=== PATIENT | female | born 1955 | race Caucasian/White ===

== ENCOUNTER → 2017-02-02 | Outpatient (CLI) | payer MEDICARE, MEDICAID ==
[~2017-02-02] MED LIST: ACHD5005 PO; ACYC30OI TOP; ASP325T PO; ASPI-241 PO; ATOR40TA70 PO; CANA300T PO; CIPR-17 PO; CLOP75TA28 PO; CYCL10TA9 PO; HYDR-34 PO; HYDR-3583 PO; IBUP-15 PO; INSASP10V SC; INSU100C4 SQ; LIRA0.6P SQ; LISI1TAB PO; METF-472 PO; MPR22TI TP; MTF500T PO; NAPR-243 PO; NAPR500T3 PO; NF-ESOM40C PO; NITR4.1S2 TL; POLY17PO23 PO
== END ==
LOC: RAD 09:20
PROVIDERS: ATTEND Physician Assistant Medical
DX: Z12.31 Encounter for screening mammogram for malignant neoplasm of breast (principal)
CPT/HCPCS: 77067

== ENCOUNTER → 2017-04-14 | Outpatient (CLI) | payer MEDICARE, MEDICAID ==
[~2017-04-14] MED LIST changes: -NAPR500T3 PO; +NAPR500T4 PO
[2017-04-14 08:57] LABS: ANION GAP 10 MMOL/L (5-14); BLOOD UREA NITROGEN 15 MG/DL (7-18); BUN/CREATININE RATIO 20; CALCIUM 9.6 MG/DL (8.5-10.1); CARBON DIOXIDE 21 MMOL/L (21-32); CHLORIDE 108 MMOL/L (98-107); CREATININE SERUM 0.75 MG/DL (0.60-1.30); GFR ESTIMATED > 60; GLUCOSE 145 MG/DL (70-105); POTASSIUM 4.6 MMOL/L (3.6-5.0); SODIUM 139 MMOL/L (135-145)
== END ==
LOC: LAB 08:08
PROVIDERS: ATTEND Physician Assistant Medical
DX: I11.0 Hypertensive heart disease with heart failure (principal); I50.42 Chronic combined systolic (congestive) and diastolic (congestive) heart failure; I25.10 Atherosclerotic heart disease of native coronary artery without angina pectoris; G44.89 Other headache syndrome; Z85.038 Personal history of other malignant neoplasm of large intestine
CPT/HCPCS: 36415; 80048

== ENCOUNTER → 2017-04-16 | Outpatient (CLI) | payer MEDICARE, MEDICAID ==
[~2017-04-16] MED LIST changes: +CATHETER FLUSH 10 ML SYR IV PRN; +IOHEXOL 350 MG/ML 100 ML (OMNIPAQUE 350) VIAL IV ONE; +NS 100 ML (IVPB) BAG IV ONE
--- NOTE | 2017-04-16 13:01 | Diagnostic Imaging Report ---
PROCEDURE: CT angiography of the head with and without contrast. TECHNIQUE: A noncontrast CT of the head was obtained. Subsequently, after intravenous administration of contrast, thin section axial CT angiography of the head was performed. Source data was reformatted into multiple MIP reformats. Delayed postcontrast acquisition of the head was also acquired. INDICATION: Headache. History of colon cancer. CONTRAST: 80 mL of Omnipaque 350 was administered intravenously. FINDINGS: There is a metallic foreign body along the right temporal region with leads seen in the mastoid air cells. This could be related to a cochlear implant. Correlate with surgical history. There is no intracranial hemorrhage, edema, or mass effect. There is no hydrocephalus. No extra-axial fluid collection is seen. The parenchymal postcontrast phase demonstrates no enhancing mass in the brain. CTA evaluation demonstrates an azygos single-vessel ELDA A2 segment seen that branches into two branches at the A3 level. There is a hypoplastic A1 segment on the right side and a prominent A1 segment on the left. The MCA arteries are patent bilaterally. The internal carotid artery intracranial segments demonstrate atherosclerotic plaque in the cavernous segments with no significant stenosis. The vertebral arteries demonstrate dominance on the left side but both are patent. The basilar artery is patent. The COUNTER CASER is patent bilaterally. IMPRESSION: Postsurgical changes with artifacts related to metallic implant along the right temporal region. No evidence of metastatic disease and no evidence of high-grade stenosis, occlusion, or aneurysm in the major intracranial arteries. Normal variation hypoplastic of the A1 segment on the right side is seen as described. Dictated by: Dictated on workstation # [id number]
--- NOTE | 2017-04-16 13:25 | Diagnostic Imaging Report ---
PROCEDURE: CT neck soft tissue with contrast. TECHNIQUE: Multiple contiguous axial images were obtained through the neck after the administration of contrast. INDICATION: Headache syndrome. History of colon CA and coronary artery disease. FINDINGS: Patient has cochlear implant. There is good opacification of the cervical vessels following IV contrast injection. There is calcified atherosclerotic change in the internal carotid arteries bilaterally. Stenosis is greater on the left, estimated 50%. There is no evidence of cervical chain adenopathy of pathologic size. There are a few subcentimeter cervical chain lymph nodes noted bilaterally. The parotid glands are symmetrical. The submandibular glands are symmetrical. The parapharyngeal tissue planes are normal. The nasopharynx and oropharynx appear normal. Epiglottis is normal. The larynx is normal. The thyroid gland appears normal. Strap muscles are normal with good preservation of tissue planes. Bone windows show no destructive bony lesions. IMPRESSION: 1. Atherosclerotic changes of the carotid arteries moderate in nature on the left as described. Would consider color Doppler ultrasound of the carotid arteries. 2. No evidence of cervical chain adenopathy or developing soft tissue masses. Dictated by: Dictated on workstation # [id number]
== END ==
LOC: RAD 10:25
PROVIDERS: ATTEND Physician Assistant Medical
DX: I65.22 Occlusion and stenosis of left carotid artery (principal); G44.89 Other headache syndrome; I25.10 Atherosclerotic heart disease of native coronary artery without angina pectoris; I11.0 Hypertensive heart disease with heart failure; I50.42 Chronic combined systolic (congestive) and diastolic (congestive) heart failure; Z85.038 Personal history of other malignant neoplasm of large intestine; Z96.21 Cochlear implant status
CPT/HCPCS: 70491; 70496

== ENCOUNTER 2017-05-25 09:34 | Emergency (ER) | payer MEDICARE, MEDICAID ==
[~2017-05-25] VITALS: Ht 162.6 cm; Wt 98.0 kg
[~2017-05-25 09:34] MED LIST changes: -CATHETER FLUSH 10 ML SYR IV PRN; -IOHEXOL 350 MG/ML 100 ML (OMNIPAQUE 350) VIAL IV ONE; -NS 100 ML (IVPB) BAG IV ONE
--- NOTE | 2017-05-25 10:20 | ED Lower Extremity ---
General Chief Complaint: Lower Extremity Stated Complaint: LEFT ANKLE INJ-FALL Nursing Triage Note: AMBULATED TO ROOM 09 WITH COMPLAINTS OF LEFT ANKLE PAIN AFTER FALLING YESTEDAY Nursing Sepsis Screen: No Definite Risk Source: patient History of Present Illness Date Seen by Provider: May 25, 2017 Time Seen by Provider: 10:05 Initial Comments C/O LEFT FOOT/ANKLE INJURY YESTERDAY STATES SHE WAS CARRYING A TUB DOWN STEPS, AND MISSED A STEP AND FELL FORWARD, TWISTING LEFT ANKLE NO OTHER INJURIES NO PRIOR INJURY TO THIS FOOT/ANKLE NO PARESTHESIAS OR MOTOR DEFICITS Allergies and Home Medications Allergies Coded Allergies: insulin aspart (Unverified Allergy, Unknown, HIVES, 09/13/13) insulin glargine (Verified Allergy, Unknown, HIVES, 09/13/13) Home Medications Aspirin 325 Mg Tablet.dr, 162 MG PO DAILY, (Reported) Canagliflozin 300 Mg Tablet, 300 MG PO DAILY, (Reported) Cyclobenzaprine HCl 10 Mg Tablet, 10 MG PO Q8H, #15 Prescribed by: MELISSA COTTER on 01/23/152051 Hydrocodone Bit/Acetaminophen 1 Ea Tablet, 1-2 EA PO Q4H PRN for PAIN, #30 Prescribed by: FARHAN PICHARDO on 05/09/14 1405 Hydrocodone/Ibuprofen 1 Each Tablet, 1 EACH PO Q4H, #20 Prescribed by: MELISSA COTTER on 05/25/17 1052 Liraglutide 0.6 Mg/0.1 Ml Pen.injctr, 1.2 MG SQ DAILY, (Reported) Naproxen 500 Mg Tablet, 500 MG PO BID, #20 Prescribed by: MELISSA COTTER on 01/23/152051 Constitutional: no symptoms reported Musculoskeletal: see HPI Skin: no symptoms reported Psychiatric/Neurological: No Symptoms Reported Past Nhaunke-Etihbj-Sbcyeq Hx Patient Social History Alcohol Use: Denies Use Recreational Drug Use: No Smoking Status: Never a Smoker Recent Foreign Travel: No Contact w/Someone Who Travel: No Recent Infectious Disease Expo: No Recent Hopitalizations: Yes Immunizations Up To Date Tetanus Booster (TDap): Less than 5yrs Date of Pneumonia Vaccine: Jan 31, 2011 Surgeries History of Surgeries: Yes (COCHLEAR IMPLANT; COLON RESECTION;RIGHT KNEE SCOPE; CARDIAC CATH--STENTS X 2; LEFT ELBOW SURGERY/?ULNAR NERVE?; BILATERAL CARPAL TUNNEL; HYST/BSO/APPY) Surgeries: Abdominal, Appendectomy, Bowel Surgery, Cardiac, Coronary Stent, Defibrillator, Ear Surgery, Gallbladder, Hysterectomy, Oophorectomy, Orthopedic , Pacemaker Respiratory History of Respiratory Disorde: No Cardiovascular History of Cardiac Disorders: Yes (CHF, PACEMAKER / DEFIBRILLATOR) Cardiac Disorders: Atrial Fibrillation, Coronary Artery Disease, Hypertension Neurological History of Neurological Disord: No Reproductive System Hx Reproductive Disorders: No Sexually Transmitted Disease: 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 Genitourinary History of Genitourinary Disor: Yes Genitourinary Disorders: Bladder Infection Gastrointestinal History of Gastrointestinal Di: Yes (COLON RESECTION FOR CANCER) Gastrointestinal Disorders: Chronic Diarrhea Musculoskeletal History of Musculoskeletal Dis: Yes Musculoskeletal Disorders: Arthritis Endocrine History of Endocrine Disorders: Yes (HAS BEEN ON INSULIN IN PAST--BUT ALLERGIC REACTION TO LANTUS AND NOVOLOG, NOW ON VICTOZA) Endocrine Disorders: Diabetes, Non-Insulin dep HEENT History of HEENT Disorders: Yes Hearing Impairment: Hearing Aide Right Cancer History of Cancer: Yes Cancer: Colon Did You Recieve Any Treatments: Yes Type of Tx Receive: Surgical Intervention Psychosocial History of Psychiatric Problem: No Integumentary History of Skin or Integumenta: No Blood Transfusions History of Blood Disorders: No Physical Exam Vital Signs Vital Sign - Last 12Hours 05/25/17 09:57 Temp 98.0 Pulse 91 Resp 18 B/P (MAP) 136/73 (94) Pulse Ox 97 Capillary Refill : Less Than 3 Seconds General Appearance: WD/WN, no apparent distress Hips: bilateral hip non-tender, bilateral hip normal inspection Legs: bilateral leg non-tender, bilateral leg normal inspection Knees: bilateral knee non-tender, bilateral knee normal inspection Ankles: right ankle normal inspection, left ankle bone tenderness, left ankle ecchymosis, left ankle limited range of motion, left ankle soft tissue tenderness, left ankle swelling, left ankle other (LATERAL MALLEOLUS) Feet: right foot normal inspection, left foot bone tenderness, left foot ecchymosis, left foot limited range of motion, left foot pain, left foot soft tissue tenderness, left foot swelling, left foot other (LATERAL ASPECT. 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, no motor/sensory deficits, alert, normal mood/affect, oriented x 3 Skin: normal color, warm/dry, ecchymosis (TO LATERAL ASPECT OF FOOT AND ANKLE) Splinting and Joint Reduction : Evert wrap: Yes Immobilizers: Step Light Walker s/m/lg Progress/Results/Core Measures Results/Orders My Orders Orders - MELISSA COTTER DO Foot, Left, 3 Views (05/25/17 10:10) Ankle, Left, 3 Views (05/25/17 10:10) Evert Bandage (05/25/17 10:49) Steplite (05/25/17 10:49) Vital Signs/I&O Vital Sign - Last 12Hours 05/25/17 09:57 Temp 98.0 Pulse 91 Resp 18 B/P (MAP) 136/73 (94) Pulse Ox 97 Blood Pressure Mean: 94 Progress Note : Progress Note PT STATES SHE WILL FOLLOW UP WITH DR. YOUNGBLOOD, HE HAS DONE PRIOR SURGERY ON HER. Diagnostic Imaging Comments XRAYS LEFT FOOT AND ANKLE--AVULSION OF NAVICULAR BONE, AGE INDETERMINATE, PER RADIOLOGIST REPORT @ 1047 Reviewed: Reviewed by Me Departure Impression Impression: Primary Impression: LEFT ANKLE SPRAIN Additional Impression: Closed avulsion fracture of navicular bone of left foot Disposition: HOME, SELF-CARE Condition: Stable Departure-Patient Inst. Referrals: MARY LOU SCOTT MD (PCP) Primary Care Physician ERIN FRANKLIN (Family) Primary Care Physician BRIANA YOUNGBLOOD MD Patient Instructions: Ankle Fracture (DC), Ankle Sprain (DC) Add. Discharge Instructions: EVERT WRAP, AND WALKING BOOT AT ALL TIMES ICE TO AREA AT 20 MINUTE INTERVALS ELEVATE FOOT MUCH POSSIBLE FOLLOW UP WITH DR. YOUNGBLOOD NEXT WEEK FOR FURTHER CARE All discharge instructions reviewed with patient and/or family. Voiced understanding. Scripts Hydrocodone/Ibuprofen (Hydrocodone-Ibuprofen 7.5-200) 1 Each Tablet 1 EACH PO Q4H for Pain, #20 TAB Prov: MELISSA COTTER DO 05/25/17 MELISSA COTTER DO May 25, 2017 10:20
--- NOTE | 2017-05-25 10:37 | Diagnostic Imaging Report ---
INDICATION: Rolled left ankle, complaining of pain and swelling. Time of exam 10:18 AM 3 views of the left ankle were obtained. There is mild lateral soft tissue swelling present. Ankle mortise is well-maintained. The talar dome is smooth. No fracture is seen. There is a large plantar calcaneal spur. There are some degenerative changes at the mid foot. Vascular calcifications are present as well. IMPRESSION: Lateral ankle swelling. No acute bony abnormality is detected. Dictated by: Dictated on workstation # [id number]
--- NOTE | 2017-05-25 10:38 | Diagnostic Imaging Report ---
INDICATION: Left ankle and foot injury with pain and swelling. Time of exam: 10:19 AM 3 views of the left foot were obtained. The metatarsals appear intact. The phalanges are intact. There are some talonavicular joint degenerative changes. There is linear density noted along the dorsum of the foot along the dorsal cortex of the navicular. This is suggestive of an avulsion, however age is indeterminate. There is a large plantar calcaneal spur present. IMPRESSION: Probable age-indeterminate avulsion of the dorsal aspect of the navicular. The study is otherwise unremarkable. Dictated by: Dictated on workstation # [id number]
[2017-05-25] MEDS ORDERED: HYDR-87 PO (10:52)
[2017-05-25 11:00] VITALS: BP 136/73
== END 2017-05-25 11:00 | disposition home or self-care (01) ==
LOC: EDUNIT# 09:34 → ER 09:36
DX: S92.252A Displaced fracture of navicular [scaphoid] of left foot, initial encounter for closed fracture (principal); S93.402A Sprain of unspecified ligament of left ankle, initial encounter; I48.91 Unspecified atrial fibrillation; I10 Essential (primary) hypertension; I25.10 Atherosclerotic heart disease of native coronary artery without angina pectoris; I11.0 Hypertensive heart disease with heart failure; E11.9 Type 2 diabetes mellitus without complications; Z95.810 Presence of automatic (implantable) cardiac defibrillator; Z95.5 Presence of coronary angioplasty implant and graft; Z90.710 Acquired absence of both cervix and uterus; Z90.49 Acquired absence of other specified parts of digestive tract; Z85.038 Personal history of other malignant neoplasm of large intestine; Z79.82 Long term (current) use of aspirin; W10.1XXA Fall (on)(from) sidewalk curb, initial encounter
CPT/HCPCS: 73610; 73630; 99282

== ENCOUNTER 2019-01-13 07:46 | Outpatient (RCR) | payer MEDICARE, MEDICAID ==
[~2019-01-13 07:46] MED LIST changes: +HYDR-87 PO; +NAPR-915 PO; -NAPR500T4 PO
== END 2019-02-28 | disposition home or self-care (01) ==
LOC: CR 07:46
PROVIDERS: ATTEND Internal Medicine Cardiovascular Disease
DX: Z48.812 Encounter for surgical aftercare following surgery on the circulatory system (principal); Z95.5 Presence of coronary angioplasty implant and graft
CPT/HCPCS: 93798

== ENCOUNTER 2019-03-31 09:55 | Emergency (ER) | payer MEDICARE, MEDICAID ==
[~2019-03-31] VITALS: Ht 162.5 cm; Wt 94.0 kg
--- NOTE | 2019-03-31 10:16 | ED Fall/Injury ---
General Chief Complaint: Upper Extremity Stated Complaint: LT RIB PAIN,NECK PAIN POST FALL Source: patient Exam Limitations: no limitations History of Present Illness Date Seen by Provider: Mar 31, 2019 Time Seen by Provider: 09:58 Initial Comments Patient presents to ER by private conveyance with chief complaint that she fell after losing her balance going up some stairs about 2 stairs down landing on her left side and rolling over to her back. She says her back of her head struck a step. She did not lose consciousness at any point. She's not having any symptoms prior to the fall. She does have a history of low ejection fraction and is looking to be put on the transplant list at [facility]. She follows with Dr. Staton and Turner. The fall happened one week ago on Wednesday. She went to urgent care earlier today because she began to be more sore over the next couple days in her neck as well as her left ribs and is having a little bit more difficulty with shortness of breath more than usual. No coughs he wears chills wheezing. She said urgent care to not perform any imaging or give her any pain meds. She does not take any pain meds routinely but she does take Plavix. She's having no dysuria, nausea or other concerning symptoms. No falls since then. Allergies and Home Medications Allergies Coded Allergies: insulin aspart (Unverified Allergy, Unknown, HIVES, 09/13/13) insulin glargine (Verified Allergy, Unknown, HIVES, 09/13/13) Home Medications Aspirin 325 Mg Tablet.dr, 162 MG PO DAILY, (Reported) Canagliflozin 300 Mg Tablet, 300 MG PO DAILY, (Reported) Cyclobenzaprine HCl 10 Mg Tablet, 10 MG PO Q8H Prescribed by: MELISSA COTTER on 01/23/152051 Hydrocodone Bit/Acetaminophen 1 Ea Tablet, 1-2 EA PO Q4H PRN for PAIN Prescribed by: FARHAN PICHARDO on 05/09/14 1405 Hydrocodone/Ibuprofen 1 Each Tablet, 1 EACH PO Q4H Prescribed by: MELISSA COTTER on 05/25/17 1052 Liraglutide 0.6 Mg/0.1 Ml Pen.injctr, 1.2 MG SQ DAILY, (Reported) Naproxen 500 Mg Tablet, 500 MG PO BID Prescribed by: MELISSA COTTER on 01/23/152051 Patient Home Medication List Home Medication List Reviewed: Yes Review of Systems Review of Systems Constitutional: No chills, No fever Eyes: Denies Blindness, Denies Drainage Ears, Nose, Mouth, Throat: denies ear pain, denies nose pain Respiratory: see HPI; No cough, No phlegm; short of breath Cardiovascular: see HPI, chest pain, Hx of Intervention; No palpitations; other (AICD/pacemaker) Gastrointestinal: No abdominal pain, No nausea Genitourinary: No discharge, No dysuria Musculoskeletal: see HPI, back pain, joint pain (left shoulder), other (left rib pain) Past Caebpci-Utulct-Nqomzr Hx Patient Social History Alcohol Use: Denies Use Recreational Drug Use: No Smoking Status: Never a Smoker Recent Foreign Travel: No Contact w/Someone Who Travel: No Recent Hopitalizations: Yes Immunizations Up To Date Tetanus Booster (TDap): Less than 5yrs Date of Pneumonia Vaccine: Jan 31, 2011 Past Medical History Surgeries: Yes Abdominal, Appendectomy, Bowel Surgery, Cardiac, Coronary Stent, Defibrillator, Ear Surgery, Gallbladder, Hysterectomy, Oophorectomy, Orthopedic, Pacemaker Respiratory: No Cardiac: Yes (CHF, PACEMAKER / DEFIBRILLATOR) Atrial Fibrillation, Coronary Artery Disease, Hypertension Neurological: No 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 Sexually Transmitted Disease: No Genitourinary: Yes Bladder Infection Gastrointestinal: Yes (COLON RESECTION FOR CANCER) Chronic Diarrhea Musculoskeletal: Yes Arthritis Endocrine: Yes Diabetes, Non-Insulin dep HEENT: Yes Hearing Impairment: Hearing Aide Right Cancer: Yes Colon Did You Recieve Any Treatments: Yes What Type of Treatment Did You: Surgical Intervention Psychosocial: No Integumentary: No Blood Disorders: No Physical Exam Vital Signs Vital Signs - First Documented 03/31/19 09:59 Temp 37.0 Pulse 85 Resp 18 B/P (MAP) 184/84 (117) Pulse Ox 98 O2 Delivery Room Air Capillary Refill : Height, Weight, BMI Height: 5'4.00" Weight: 216lbs. oz. 97.796910gn; BMI Method:Stated General Appearance: WD/WN, no apparent distress HEENT: PERRL/EOMI, normal ENT inspection, TMs normal, pharynx normal, other (atraumatic, negative for Myrick sign or raccoon eyes) Neck: full range of motion, supple, normal inspection, tender lateral (left lateral paraspinous muscles and trapezius and spasm) Cardiovascular: normal peripheral pulses, regular rate, rhythm Respiratory: lungs clear, normal breath sounds, other (left inferior costal margin tender to palpation without deformity from midaxillary and posteriorly to this.) Extremities: normal range of motion (left shoulder active), normal inspection, other (tenderness to anterior left glenohumeral joint) Neurologic/Psychiatric: no motor/sensory deficits, alert, normal mood/affect, oriented x 3 Marylin Coma Score Best Eye Response: (4) Open Spontaneously Best Verbal Response: (5) Oriented Best Motor Response: (6) Obeys Commands [place] Total: 15 Progress/Results/Core Measures Results/Orders My Orders Orders - BAKARI BLEVINS Chest 1 View, Ap/Pa Only (03/31/19 10:08) Ribs, Left 2-3 Views (03/31/19 10:08) Shoulder, Left, 3 Views (03/31/19 10:08) Cervical Spine 3 Views Or Less (03/31/19 10:08) T-Spine 3v-Ap, Lat, Swimmers (03/31/19 10:42) Vital Signs/I&O 03/31/19 09:59 Temp 37.0 Pulse 85 Resp 18 B/P (MAP) 184/84 (117) Pulse Ox 98 O2 Delivery Room Air Progress Progress Note : Time: 10:14 Progress Note Plain films of the cervical and thoracic spine as well as chest and left ribs and left shoulder. Diagnostic Imaging Diagonstic Imaging: Xray Plain Films/CT/US/NM/MRI: chest (left ribs) Comments NAME: ELO ROJAS [employer] REC#: [id number] PT STATUS: REG ER : 1955 PHYSICIAN: BAKARI BLEVINS MD ADMIT DATE: 03/31/19/ER Signed POSDate of Exam:03/31/19 CHEST 1 VIEW, AP/PA ONLY EXAMINATION: Portable chest. INDICATION: Fall. FINDINGS: An implantable cardiac defibrillator device is present. Heart size is unchanged. There is no pleural collection or evidence of a pneumothorax. There is no focal infiltrate or consolidation. No convincing evidence of a rib fracture on this single view. IMPRESSION: 1. No radiographic evidence of an acute cardiopulmonary process. Dictated by: Dictated on workstation # [id number] Dict: 03/31/19 1153 Trans: 03/31/19 1200 [facility] [id number] Interpreted by: MARVIN FOREMAN MD Electronically signed by: MARVIN FOREMAN MD 03/31/19 1200 [facility] POS [place], [place] POS NAME: ELO ROJAS [employer] REC#: [id number] PT STATUS: REG ER : 1955 PHYSICIAN: BAKARI BLEVINS MD ADMIT DATE: 03/31/19/ER Draft POSDate of Exam:03/31/19 RIBS, LEFT 2-3 VIEWS CLINICAL HISTORY: Fall. Left-sided pain. COMPARISON: 01/23/2015 TECHNIQUE: 3 views of the left ribs. FINDINGS: No acute displaced left sided rib fractures are seen. No focal consolidations are present. The included soft tissues are unremarkable. IMPRESSION: 1. No acute displaced left-sided rib fractures. Dictated on workstation # [id number] Dict: 03/31/19 1201 Trans: 03/31/19 1205 [facility] [phone] Interpreted by: ÁNGELA BOWMAN DO Electronically signed by: Reviewed: Reviewed by Me Diagonstic Imaging: Xray Plain Films/CT/US/NM/MRI: c-spine Comments [facility] [place], [place] POS NAME: ELO ROJAS [employer] REC#: [id number] PT STATUS: REG ER : 1955 PHYSICIAN: BAKARI BLEVINS MD ADMIT DATE: 03/31/19/ER Signed POSDate of Exam:03/31/19 CERVICAL SPINE 3 VIEWS OR LESS EXAMINATION: Cervical spine series INDICATION: Fall. FINDINGS: Alignment of the cervical spine appears within normal limits. Several spine only well-visualized to the upper aspect of C7. There are multilevel hypertrophic changes present within the facets as well as endplate changes at the C3-C4 and C4-C5. There is no widening of the predental space. There is no abnormal prevertebral soft tissue thickening. Odontoid view is unremarkable. Note is made of bilateral carotid calcifications. A right-sided cochlear implant is noted. IMPRESSION: 1. Multilevel cervical degenerative disc disease and facet arthropathy. Alignment appears appropriate and vertebral body heights appear maintained. There is no abnormal thickening demonstrated of the prevertebral soft tissues. Dictated by: Dictated on workstation # [id number] Dict: 03/31/19 1154 Trans: 03/31/19 1200 [facility] [id number] Interpreted by: MARVIN FOREMAN MD Electronically signed by: MARVIN FOREMAN MD 03/31/19 1200 Reviewed: Reviewed by Az Diagonstic Imaging: Xray Plain Films/CT/US/NM/MRI: other (and thoracic spine) Comments [facility] POS [place], [place] POS NAME: ELO ROJAS [employer] REC#: [id number] PT STATUS: REG ER : 1955 PHYSICIAN: BAKARI BLEVINS MD ADMIT DATE: 03/31/19/ER Draft POSDate of Exam:03/31/19 T-SPINE 3V-AP, LAT, SWIMMERS EXAMINATION: 3 views of the thoracic spine. INDICATION: Fall. FINDINGS: Alignment of the thoracic spine appears appropriate but there is limited assessment of the cervicothoracic junction due to overlapping soft tissues and the shoulders. There are mild degenerative endplate changes within the visualized portion of the thoracic spine. The vertebral body heights appear maintained. The visualized portion of the lungs clear. An implantable cardiac defibrillator device is noted. IMPRESSION: 1. Visualized portions of the thoracic spine demonstrate normal alignment with maintenance of vertebral body heights. There is however limited assessment of the cervical thoracic junction due to overlapping soft tissues of the shoulders. Dictated on workstation # [id number] Dict: 03/31/19 1200 Trans: 03/31/19 1205 [facility] [id number] Interpreted by: MARVIN FOREMAN MD Electronically signed by: Reviewed: Reviewed by Az Diagonstic Imaging: Xray Plain Films/CT/US/NM/MRI: other (left shoulder) Comments [facility] POS [place], [place] POS NAME: ELO ROJAS [employer] REC#: [id number] PT STATUS: REG ER : 1955 PHYSICIAN: BAKARI BLEVINS MD ADMIT DATE: 03/31/19/ER Draft POSDate of Exam:03/31/19 SHOULDER, LEFT, 3 VIEWS EXAMINATION: Left shoulder series. INDICATION: Shoulder pain. Fall. FINDINGS: There are no findings of glenohumeral joint dislocation or of AC joint separation. There is no proximal humeral fracture evident. Clavicle is unremarkable. There is no cortical disruption evident of the scapula. There is no visualized rib fracture. IMPRESSION: 1. No evidence of left shoulder dislocation, malalignment or acute fracture. Dictated on workstation # [id number] Dict: 03/31/19 1201 Trans: 03/31/19 1204 [facility] [id number] Interpreted by: MARVIN FOREMAN MD Electronically signed by: Reviewed: Reviewed by Me Departure Impression Primary Impression: Fall Qualified Codes: W19.XXXS - Unspecified fall, sequela Additional Impressions: Cervical paraspinous muscle spasm Left anterior shoulder pain Rib pain on left side Disposition: 01 HOME, SELF-CARE Condition: Stable Departure-Patient Inst. Decision time for Depature: 12:25 Referrals: MARY LOU SCOTT MD (PCP) Primary Care Physician ERIN FRANKLIN (Family) Primary Care Physician Patient Instructions: Cervical Muscle Strain, LOCAL PHYSICIAN LIST, Shoulder Pain (DC) Add. Discharge Instructions: You have some soft tissue damage and strain to the muscles of your neck and shoulder as well as the intercostal muscles however you do not have any fractures of the bones. Expect relief in the next 1-2 weeks. Heating pads, topical creams such as icy hot or Biofreeze can be useful. If you have muscle tenderness or spasm you can take one tablet of cyclobenzaprine every 8 hours as needed. Muscle relaxants will cause drowsiness and you can always cut the tablet in half if you have excessive drowsiness. Tylenol 1000 mg every 8 hours as needed for pain. All discharge instructions reviewed with patient and/or family. Voiced understanding. Scripts Cyclobenzaprine HCl (Cyclobenzaprine HCl) 10 Mg Tablet 10 MG PO Q8H PRN for SPASMS, #15 TAB 0 Refills Prov: BAKARI BLEVINS 03/31/19 BAKARI BLEVINS Mar 31, 2019 10:16 POS
--- NOTE | 2019-03-31 11:57 | Diagnostic Imaging Report ---
EXAMINATION: Portable chest. INDICATION: Fall. FINDINGS: An implantable cardiac defibrillator device is present. Heart size is unchanged. There is no pleural collection or evidence of a pneumothorax. There is no focal infiltrate or consolidation. No convincing evidence of a rib fracture on this single view. IMPRESSION: 1. No radiographic evidence of an acute cardiopulmonary process. Dictated by: Dictated on workstation # [id number]
--- NOTE | 2019-03-31 11:58 | Diagnostic Imaging Report ---
EXAMINATION: Cervical spine series INDICATION: Fall. FINDINGS: Alignment of the cervical spine appears within normal limits. Several spine only well-visualized to the upper aspect of C7. There are multilevel hypertrophic changes present within the facets as well as endplate changes at the C3-C4 and C4-C5. There is no widening of the predental space. There is no abnormal prevertebral soft tissue thickening. Odontoid view is unremarkable. Note is made of bilateral carotid calcifications. A right-sided cochlear implant is noted. IMPRESSION: 1. Multilevel cervical degenerative disc disease and facet arthropathy. Alignment appears appropriate and vertebral body heights appear maintained. There is no abnormal thickening demonstrated of the prevertebral soft tissues. Dictated by: Dictated on workstation # [id number]
--- NOTE | 2019-03-31 12:04 | Diagnostic Imaging Report ---
EXAMINATION: Left shoulder series. INDICATION: Shoulder pain. Fall. FINDINGS: There are no findings of glenohumeral joint dislocation or of AC joint separation. There is no proximal humeral fracture evident. Clavicle is unremarkable. There is no cortical disruption evident of the scapula. There is no visualized rib fracture. IMPRESSION: 1. No evidence of left shoulder dislocation, malalignment or acute fracture. Dictated by: Dictated on workstation # [id number]
--- NOTE | 2019-03-31 12:05 | Diagnostic Imaging Report ---
CLINICAL HISTORY: Fall. Left-sided pain. COMPARISON: 01/23/2015 TECHNIQUE: 3 views of the left ribs. FINDINGS: No acute displaced left sided rib fractures are seen. No focal consolidations are present. The included soft tissues are unremarkable. IMPRESSION: 1. No acute displaced left-sided rib fractures. Dictated by: Dictated on workstation # [id number]
--- NOTE | 2019-03-31 12:05 | Diagnostic Imaging Report ---
EXAMINATION: 3 views of the thoracic spine. INDICATION: Fall. FINDINGS: Alignment of the thoracic spine appears appropriate but there is limited assessment of the cervicothoracic junction due to overlapping soft tissues and the shoulders. There are mild degenerative endplate changes within the visualized portion of the thoracic spine. The vertebral body heights appear maintained. The visualized portion of the lungs clear. An implantable cardiac defibrillator device is noted. IMPRESSION: 1. Visualized portions of the thoracic spine demonstrate normal alignment with maintenance of vertebral body heights. There is however limited assessment of the cervical thoracic junction due to overlapping soft tissues of the shoulders. Dictated by: Dictated on workstation # [id number]
[2019-03-31 12:30] VITALS: BP 184/84
[2019-03-31] MEDS ORDERED: CYCL10TA9 PO (12:30)
== END 2019-03-31 12:45 | disposition home or self-care (01) ==
LOC: EDUNIT# 09:55 → ER 09:57
DX: M62.830 Muscle spasm of back (principal); M25.512 Pain in left shoulder; R07.81 Pleurodynia; I10 Essential (primary) hypertension; I25.10 Atherosclerotic heart disease of native coronary artery without angina pectoris; I48.91 Unspecified atrial fibrillation; E11.9 Type 2 diabetes mellitus without complications; Z85.038 Personal history of other malignant neoplasm of large intestine; Z79.02 Long term (current) use of antithrombotics/antiplatelets; Z91.14 Patient's other noncompliance with medication regimen; Z79.4 Long term (current) use of insulin; Z79.82 Long term (current) use of aspirin; Z90.49 Acquired absence of other specified parts of digestive tract; Z95.5 Presence of coronary angioplasty implant and graft; Z90.710 Acquired absence of both cervix and uterus; Z95.0 Presence of cardiac pacemaker; W10.9XXA Fall (on) (from) unspecified stairs and steps, initial encounter
CPT/HCPCS: 71045; 71100; 72040; 72072; 73030

== ENCOUNTER → 2021-06-17 | Outpatient (CLI) | payer MEDICARE, MEDICAID ==
[~2021-06-17] MED LIST changes: +CYCL10TA25 PO
--- NOTE | 2021-06-17 18:29 | Diagnostic Imaging Report ---
INDICATION: Left foot pain, recent cardiac surgery AP, oblique, and lateral views of the left foot are obtained and compared to 05/25/2017. There are vascular calcifications noted. There is plantar calcaneal spurring. There are chronic changes of the talonavicular joint. No acute bony abnormality is seen. IMPRESSION: Chronic findings with no acute abnormality of the left foot. Dictated by: Dictated on workstation # [id number]
== END ==
LOC: RAD 16:29
PROVIDERS: ATTEND Internal Medicine Cardiovascular Disease
DX: Z48.21 Encounter for aftercare following heart transplant (principal); M79.672 Pain in left foot
CPT/HCPCS: 73630

== ENCOUNTER 2021-07-09 18:11 | Emergency (ER) | payer MEDICARE, MEDICAID ==
[~2021-07-09] VITALS: Ht 162 cm; Wt 90.0 kg
--- NOTE | 2021-07-09 18:19 | ED Fall/Injury ---
General Stated Complaint: FALL Source: patient (PT IS LIMITED HISTORIAN), EMS, old records History of Present Illness Date Seen by Provider: Jul 09, 2021 Time Seen by Provider: 18:11 Initial Comments PT ARRIVES VIA EMS FROM HOME--NO IMMOBILIZATION OR IV PT WAS USING HER WALKER AND SLIPPED ON WET FLOOR AND FELL, HITTING HER LEFT CHEEK ON THE DOOR, AND LANDED ON HER LEFT SIDE STATES WHEN SHE LANDED HER LEFT ELBOW HIT HER LEFT SIDE OCCURRED EARLY THIS MORNING, FIRE DEPARTMENT WAS CALLED FOR LIFT ASSIST AND REFUSED TRANSPORT AT THAT TIME STATES SHE WAS SORE WHEN IT HAPPENED, BUT HAS GOTTEN MORE SORE THROUGHOUT THE DAY TOOK TYLENOL X 1 EARLIER TODAY PT LIVES AT HOME WITH HER BOYFRIEND NO LOSS OF CONSCIOUSNESS NO VISION CHANGES NO PARESTHESIAS OR MOTOR DEFICITS NO HEADACHE NO NAUSEA/VOMITING NO DIZZINESS MOSTLY C/O PAIN TO LEFT HIP, LEFT SIDE OF CHEST AND ABDOMEN AND FLANK AREA HAS MILDER PAIN TO LEFT CHEEK. HAS SOME BACK PAIN WELL DENIES NECK PAIN PT HAD A HEART TRANSPLANT AT [facility] IN MARCH 2021, AND WAS RELEASED FROM THE HOSPITAL AND BACK AT HOME SINCE JUNE 15/2022. PT IS ON ASPIRIN, BUT NO OTHER BLOOD THINNERS ARE ON MEDICATION LIST. NO EXCESSIVE BLEEDING OR BRUISING AT THIS TIME PCP: DR. KETURAH FLORES IN [place]. Allergies and Home Medications Allergies Coded Allergies: insulin aspart (Unverified Allergy, Unknown, HIVES, 09/13/13) insulin glargine (Verified Allergy, Unknown, HIVES, 09/13/13) Patient Home Medication List Home Medication List Reviewed: Yes Aspirin (Ecotrin) 325 Mg Tablet., 162 MG PO DAILY, (Reported) Entered as Reported by: DOROTHEA CABRERA on 05/04/14 1235 Canagliflozin (Invokana) 300 Mg Tablet, 300 MG PO DAILY, (Reported) Entered as Reported by: DOROTHEA CABRERA on 09/13/13 1259 Cyclobenzaprine HCl (Cyclobenzaprine HCl) 10 Mg Tablet, 10 MG PO Q8H Prescribed by: MELISSA COTTER on 01/23/152051 Cyclobenzaprine HCl (Cyclobenzaprine HCl) 10 Mg Tablet, 10 MG PO Q8H PRN for SPASMS Prescribed by: BAKARI BLEVINS on 03/31/19 1230 Hydrocodone Bit/Acetaminophen (Lortab 7.5 Mg Tablet) 1 Ea Tablet, 1-2 EA PO Q4H PRN for PAIN Prescribed by: FARHAN PICHARDO on 05/09/14 1405 Hydrocodone/Ibuprofen (Hydrocodone-Ibuprofen 7.5-200) 1 Each Tablet, 1 EACH PO Q4H Prescribed by: MELISSA COTTER on 05/25/17 1052 Liraglutide (Victoza) 0.6 Mg/0.1 Ml Pen.injctr, 1.2 MG SQ DAILY, (Reported) Entered as Reported by: DOROTHEA CABRERA on 05/04/14 1235 Naproxen (Naproxen) 500 Mg Tablet, 500 MG PO BID Prescribed by: MELISSA COTTER on 01/23/152051 Review of Systems Review of Systems Constitutional: no symptoms reported Eyes: No Symptoms Reported Ears, Nose, Mouth, Throat: no symptoms reported Respiratory: other (ALWAYS SHORT OF BREATH AND IS NO DIFFERENT THAN NORMAL) Cardiovascular: chest pain, other (LEFT RIBS SORE) Gastrointestinal: see HPI, other (LEFT SIDE OF ABDOMEN AND LEFT FLANK SORE) Musculoskeletal: see HPI Skin: other (MULTIPLE SKIN TEARS, AND SCABBED WOUNDS OF VARIOUS AGES; RECENT SKIN TEARS TO LEFT ELBOW) Psychiatric/Neurological: No Symptoms Reported; Denies Headache, Denies Numbness, Denies Paresthesia, Denies Tingling, Denies Weakness Past Bciyaod-Busfgi-Nuokeh Hx Patient Social History Tobacco Use?: Yes Tobacco type used: Cigarettes Smoking Status: Former Smoker Smokeless Tobacco Frequency: Never a User Use of E-Cig and/or Vaping Abdulkadir: Never a User Substance use?: No Alcohol Use?: No Immunizations Up To Date Tetanus Booster (TDap): Less than 5yrs Past Medical History Surgeries: Yes Abdominal, Appendectomy, Bowel Surgery, Cardiac, Coronary Stent, Defibrillator, Ear Surgery, Gallbladder, Hysterectomy, Oophorectomy, Orthopedic, Pacemaker Respiratory: No Cardiac: Yes (STENTS X 2;CHF;PACEMAKER / DEFIBRILLATOR;HEART TRANSPLANT 03/2021) Atrial Fibrillation, Cardiomyopathy, Chronic Edema/Swelling, Coronary Artery Disease, High Cholesterol, Hypertension Neurological: Yes (PERIPHERAL NEUROPATHY;CVA WITH LEFT SIDE WEAKNESS) Neuropathy, Stroke 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, 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 Sexually Transmitted Disease: No Genitourinary: Yes Bladder Infection Gastrointestinal: Yes (COLON RESECTION FOR CANCER) Chronic Diarrhea Musculoskeletal: Yes Degenerate Disk Disease, Arthritis Endocrine: Yes (WAS ON INSULIN BUT HAD ALLERGIC REACTION TO LANTUS AND NOVOLOG- NOW TRESIBA) Diabetes, Insulin dep, Diabetes, Non-Insulin dep HEENT: Yes (RIGHT COCHLEAR IMPLANT) Hearing Impairment: Hearing Aide Right Cancer: Yes Colon Did You Recieve Any Treatments: Yes What Type of Treatment Did You: Surgical Intervention Psychosocial: Yes Sleep Difficulties, Anxiety, Depression Integumentary: No Blood Disorders: No Family Medical History PAST SURGICAL HISTORY: -RIGHT COCHLEAR IMPLANT -COLON RESECTION FOR CANCER -RIGHT KNEE SCOPE -CARDIAC CATHS WITH STENTS X 2 -PACEMAKER/DEFIBRILLATOR -LEFT ELBOW SURGERY--?ULNAR NERVE SURGERY? -BILATERAL CARPAL TUNNEL SURGERY -HYSTERECTOMY WITH BILATERAL SALPINGO-OOPHORECTOMY -APPENDECTOMY -CHOLECYSTECTOMY -PORT PLACED AND LATER REMOVED -03/2021--HEART TRANSPLANT AT [facility]. Physical Exam Vital Signs Vital Signs - First Documented 07/09/21 18:11 Temp 36.3 Pulse 105 Resp 16 B/P (MAP) 144/97 (113) Pulse Ox 96 O2 Delivery Room Air Capillary Refill : Height, Weight, BMI Height: 5'4.00" Weight: 216lbs. oz. 97.966490xz; 35.00 BMI Method:Stated General Appearance: WD/WN, no apparent distress, other (CHRONICALLY ILL APPEARING. VERY ANXIOUS) HEENT: PERRL/EOMI, other (RIGHT COCHLEAR IMPLANT. NO EXTERNAL EVIDENCE OF TRAUMA TO HEAD, MILD TENDERNESS AND SWELLING TO LEFT CHEEK. ) Neck: non-tender, full range of motion, supple, normal inspection Cardiovascular: regular rate, rhythm, no murmur, other (HEALING CHEST AND UPPER ABDOMEN WOUNDS FROM SURGERY IN MARCH, STILL WITH SCABS ON WOUNDS. NO SIGNS OF INFECTION. WOUNDS ARE INTACT. ) Respiratory: normal breath sounds, other (TENDERNESS TO LEFT LOWER LATERAL RIB AREA. NO CREPITANCE, NO DEFORMITY, NO SUB Q AIR. NO EXTERNAL EVIDENCE OF TRAUMA TO AREA. ABLE TO TALK IN FULL SENTENCES, BUT TAKES A DEEP BREATH AT END OF EACH SENTENCE. ) Gastrointestinal: soft, tenderness (LEFT SIDE OF ABDOMEN WITH TENDERNES, BUT NO EXTERNAL EVIDENCE OF TRAUMA. ) Back: other (MILD DIFFUSE TENDERNESS TO MID AND LOWER BACK. ) Extremities: other (TENDERNESS AND LIMITED ROM TO LEFT HIP. NO EVIDENCE OF TRAUMA TO HIP, NO DEFORMITY OR SHORTENING. OLD BRUISE TO DISTAL LATERAL LEFT THIGH. BOTH FEET WITH 1+ EDEMA. RIGHT FOOT IS WARM WITH GOOD CAPILLARY REFILL AND 1+ PULSES. LEFT FOOT IS ERYTHEMATOUS, AND VERY COLD, AND NO PALPABLE PULSES WITH DECREASED CAPILLARY REFILL. NO DUSKINESS. THERE IS A SCABBED WOUND TO MID DORSAL ASPECT OF LEFT FOOT. NO DRAINAGE. NO STREAKS. DOES HAVE SENSATION TO LEFT FOOT AND FULL ROM OF LEFT FOOT. NO TENDERNESS TO ANY PART OF RIGHT LEG AND FULL ROM AND SENSORY INTACT TO RIGHT LEG. NO TENDERNESS LEFT ELBOW WITH MULTIPLE SUPERFICIAL SKIN TEARS. NO ACTIVE BLEEDING ANYWHERE, MILD TENDERNESS TO LEFT ELBOW, BUT HAS FULL ROM. SENSATION INTACT TO LEFT ARM. VASCULAR INTACT IN BOTH ARMS. 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 MULTIPLE SORES/SCARS/SCABS TO BOTH ARMS OF VARIOUS AGES. NO SIGNS OF INFECTION . ) Progress/Results/Core Measures Results/Orders Lab Results Laboratory Tests Test 07/09/21 18:40 07/09/21 20:50 Range/Units White Blood Count 6.5 4.3-11.0 10^3/uL Red Blood Count 4.55 3.80-5.11 10^6/uL Hemoglobin 13.3 11.5-16.0 g/dL Hematocrit 42 35-52 % Mean Corpuscular Volume 91 80-99 fL Mean Corpuscular Hemoglobin 29 25-34 pg Mean Corpuscular Hemoglobin Concent 32 32-36 g/dL Red Cell Distribution Width 13.2 10.0-14.5 % Platelet Count 172 130-400 10^3/uL Mean Platelet Volume 10.7 9.0-12.2 fL Immature Granulocyte % (Auto) 1 % Neutrophils (%) (Auto) 78 H 42-75 % Lymphocytes (%) (Auto) 13 12-44 % Monocytes (%) (Auto) 7 0-12 % Eosinophils (%) (Auto) 0 0-10 % Basophils (%) (Auto) 1 0-10 % Neutrophils # (Auto) 5.1 1.8-7.8 10^3/uL Lymphocytes # (Auto) 0.9 L 1.0-4.0 10^3/uL Monocytes # (Auto) 0.5 0.0-1.0 10^3/uL Eosinophils # (Auto) 0.0 0.0-0.3 10^3/uL Basophils # (Auto) 0.0 0.0-0.1 10^3/uL Immature Granulocyte # (Auto) 0.1 0.0-0.1 10^3/uL Prothrombin Time 13.0 12.2-14.7 SEC INR Comment 1.0 0.8-1.4 Activated Partial Thromboplast Time 26 24-35 SEC Sodium Level 135 135-145 MMOL/L Potassium Level 4.9 3.6-5.0 MMOL/L Chloride Level 99 98-107 MMOL/L Carbon Dioxide Level 24 21-32 MMOL/L Anion Gap 12 5-14 MMOL/L Blood Urea Nitrogen 19 H 7-18 MG/DL Creatinine 1.39 H 0.60-1.30 MG/DL Estimat Glomerular Filtration Rate 43 BUN/Creatinine Ratio 14 Glucose Level 289 H 70-105 MG/DL Calcium Level 9.7 8.5-10.1 MG/DL Corrected Calcium 9.6 8.5-10.1 MG/DL Total Bilirubin 1.4 H 0.1-1.0 MG/DL Aspartate Amino Transf (AST/SGOT) 19 5-34 U/L Alanine Aminotransferase (ALT/SGPT) 21 0-55 U/L Alkaline Phosphatase 82 40-136 U/L Total Protein 6.8 6.4-8.2 GM/DL Albumin 4.1 3.2-4.5 GM/DL Amylase Level 32 25-125 U/L Lipase 14 8-78 U/L Urine Color YELLOW Urine Clarity CLOUDY Urine pH 7.0 5-9 Urine Specific [place] 1.010 L 1.016-1.022 Urine Protein NEGATIVE NEGATIVE Urine Glucose (UA) 3+ H NEGATIVE Urine Ketones NEGATIVE NEGATIVE Urine Nitrite NEGATIVE NEGATIVE Urine Bilirubin NEGATIVE NEGATIVE Urine Urobilinogen 0.2 < = 1.0 MG/DL Urine Leukocyte Esterase NEGATIVE NEGATIVE Urine RBC (Auto) NEGATIVE NEGATIVE Urine RBC NONE /HPF Urine WBC RARE /HPF Urine Squamous Epithelial Cells NONE /HPF Urine Crystals NONE /LPF Urine Bacteria LARGE H /HPF Urine Casts NONE /LPF Urine Mucus NEGATIVE /LPF Urine Culture Indicated YES My Orders Orders - MELISSA COTTER DO Ed Iv/Invasive Line Start (07/09/21 18:14) Ekg Tracing (07/09/21 18:14) O2 (07/09/21 18:14) Monitor-Rhythm Ecg Trace Only (07/09/21 18:14) Ct Head/Face/Cervical Wo (07/09/21 18:14) Chest 1 View, Ap/Pa Only (07/09/21 18:14) Elbow, Left, 3 Views (07/09/21 18:14) Pelvis/Willie Hips 5> Views (07/09/21 18:14) Cbc With Automated Diff (07/09/21 18:14) Comprehensive Metabolic Panel (07/09/21 18:14) Protime With Inr (07/09/21 18:14) Partial Thromboplastin Time (07/09/21 18:14) Ua Culture If Indicated (07/09/21 18:14) Ct Chest/Abdomen/Pelvis Wo (07/09/21 18:14) Amylase (07/09/21 18:14) Lipase (07/09/21 18:14) Ct Thoracic/Lumbar Spine Wo (07/09/21 18:14) Fentanyl Inj (Sublimaze Injection) (07/09/21 19:57) Dipht,Pertuss(Acell),Tet Adult (Boostrix (07/09/21 20:00) Catheter(Urinary) Insert & Ass 03,15 (07/09/21 19:57) Ed Iv/Invasive Line Start (07/09/21 20:06) Ns Iv 1000 Ml (Sodium Chloride 0.9%) (07/09/21 20:15) Urine Culture (07/09/21 20:50) Lorazepam Injection (Ativan Injection) (07/09/21 21:30) Medications Given in ED Current Medications Medications Dose Ordered Sig/Liam Route Start Time Stop Time Status Last Admin Dose Admin Diphtheria/ Tetanus/Acell Pertussis 0.5 ml ONCE ONCE IM 07/09/21 20:00 07/09/21 20:01 DC 07/09/21 20:42 0.5 ML Lorazepam 1 mg ONCE ONCE IVP 07/09/21 21:30 07/09/21 21:24 DC 07/09/21 21:24 1 MG Vital Signs/I&O 07/09/21 07/09/21 18:11 21:24 Temp 36.3 36.3 Pulse 105 108 Resp 16 16 B/P (MAP) 144/97 (113) 133/86 Pulse Ox 96 97 O2 Delivery Room Air Room Air Progress Progress Note : Progress Note GIVEN FENTANYL FOR PAIN AND ATIVAN FOR ANXIETY NO DETERIORATION IN PT'S CONDITION DURING ER STAY Initial ECG Impression Date: Jul 09, 2021 Initial ECG Impression Time: 18:18 Initial ECG Rate: 107 Initial ECG Rhythm: S.Tach Diagnostic Imaging Comments CT HEAD/MAXILLFACIALS/CERVICAL SPINE--PER RADIOLOGIST REPORT AT 1936 FINDINGS: CT HEAD: Large amount of artifact is again seen related to the neuropsychology medical consultant projecting over the right temporal region. There does appear to be significant underlying low density suggestive of encephalomalacia in the right hemisphere involving the posterior right temporal and parietal lobes. There is also an approximately 1 cm in diameter focal low density region in the high right frontal white matter. No hyperdensity is seen to indicate acute hemorrhage. There is no abnormal mass effect or shift of midline structures. Surgical findings are seen in the right middle and inner ear structures with development of right mastoid air cell opacification. IMPRESSION: 1. Low-density within the right hemisphere involving the posterior temporal and parietal lobes adjacent to overlying implant. This could be on the basis of ischemia. Artifact in this region does limit assessment and clinical correlation is recommended. 2. There has also been development of a small focal region of presumed encephalomalacia in the high right frontal lobe with new opacification of right mastoid air cells. MAXILLOFACIAL CT: There is no acute fracture or malalignment identified. Globes are intact and there is no retro-bulbar hematoma. Surgical findings are seen in the right ear with fluid in right mastoid air cells. IMPRESSION: No CT evidence of acute maxillofacial abnormality. CT CERVICAL SPINE: Multiple contiguous axial CT images of the cervical spine were obtained with sagittal and coronal reformatted images produced. FINDINGS: The cervical curvature and alignment are within normal limits. The vertebral body heights and disc spaces are maintained without evidence of fracture or subluxation. There is no paraspinous hematoma. There is focal density seen in the medial aspect of the left upper lobe. This is partially included on this examination. IMPRESSION: No CT evidence of acute cervical spinal abnormality. Density in the medial left upper lobe may be chronic. Clinical correlation is recommended. CT CHEST/ABDOMEN/PELVIS--PER RADIOLOGIST REPORT AT 1945 CT CHEST: There is predominantly linear density in the medial aspect of the left upper lobe. This could represent area of scarring although it is a new finding when compared to previous study. Minimal bilateral pulmonary nodules measuring up to 0.5 cm in size. There is mild interstitial density or subsegmental atelectasis in the right upper and lower lobes. No significant consolidation is identified. There is no pneumothorax. There is a small amount of left pleural fluid. There is no evidence of mediastinal hematoma. Surgical findings are seen in the mediastinum. IMPRESSION: Small amount of left pleural fluid is present without other definite acute abnormality identified in the chest. CT ABDOMEN/PELVIS: Unenhanced images of liver and spleen reveal no focal abnormality. Gallbladder is surgically absent. No pancreatic, adrenal gland or renal abnormality is seen. There is no free fluid in the abdomen or pelvis. There is partial colectomy. No organized fluid collection is seen. Urinary bladder is unremarkable in appearance. There is a nondisplaced fracture involving the anterior column of the left acetabulum with nondisplaced fracture through the left inferior ischial ramus. IMPRESSION: Fractures involving the anterior column of left acetabulum and the left inferior ischial ramus. Otherwise, there is no CT evidence of acute abdominal or pelvic abnormality. CT THORACIC/LUMBAR SPINE--PER RADIOLOGIST REPORT AT 194 CT THORACIC SPINE: Thoracic spinal curvature and alignment unremarkable. There is diffuse disc space narrowing throughout the thoracic spine with mild associated endplate spurring. There is focal irregularity along the anterior margin of the inferior endplate at T6. This could represent fracture with an indeterminate age however there does appear to be associated soft tissue density possibly representing mild hematoma at this level. IMPRESSION: Possible nondisplaced inferior endplate fracture at T6. Correlation with site of pain would be useful. MRI could be performed for confirmation. CT LUMBAR SPINE: Lumbar spinal curvature and alignment are unremarkable. Vertebral body heights and disc spaces are maintained. There is no evidence of acute fracture or malalignment. There is mild bilateral L5-S1 degenerative facet arthropathy. No paraspinous hematoma is seen. IMPRESSION: No CT evidence of acute lumbar spinal abnormality. XRAYS--ALL PER RADIOLOGIST REPORTS AT 1950: CXR--FINDINGS: Overall heart size and pulmonary vascularity are within normal limits. There is minimal perihilar densities which may represent mild atelectasis or scarring. There is lead fragment projecting over the left brachiocephalic venous region. Mild density in the medial left upper lobe may represent atelectasis or scarring. Additional wire densities project over the mediastinum inferiorly. Surgical clips are seen in the right axilla. There is no pneumothorax. IMPRESSION: Mild bilateral atelectasis or scarring without other definite acute abnormality seen. LEFT ELBOW-- FINDINGS: There is an IV catheter in the antecubital fossa. No acute fracture or dislocation is identified. No abnormal lytic or sclerotic focus is seen and there is no radiopaque foreign body. IMPRESSION: No acute abnormality. PELVIS AND BILATERAL HIPS-- FINDINGS: Sacroiliac joints are intact as is the pubic symphysis. There is slight cortical irregularity involving the left ischial tuberosity which may represent a nondisplaced fracture. There is questionable cortical disruption lung the anterior column of the left acetabulum as well. Otherwise there is mild hip joint space narrowing and mild marginal spurring. No other fracture or dislocation is identified. IMPRESSION: Findings indicate nondisplaced fracture at the left inferior ischial ramus/tuberosity. Given anatomic considerations, cortical irregularity along the anterior aspect of the left acetabulum likely represents nondisplaced fracture as well. No other definite acute abnormality is seen. Reviewed: Reviewed by Nd Departure Communication (Admissions) 1957--CALLED [facility] IN [place]. 2003--SPOKE WITH DR. CHU, ER PHYSICIAN, ACCEPTS PT FOR TRANSFER. Impression Primary Impression: Fall from standing Additional Impressions: Closed left acetabular fracture Closed fracture of left pelvis RECENT HEART TRANSPLANT Minor head injury without loss of consciousness Facial contusion Left elbow contusion Compression fracture of T6 vertebra Skin tear of left upper extremity Disposition: XFER SHT-TRM HOSP Condition: Stable Transfer Transfer Reason: Exceeds level of care (SPECIALTY ORTHOPEDIC SERVIES UNAVAILABLE HERE, AND PT WITH RECENT HEART TRANSPLANT AT [facility]) Transfer Facility: [facility] [place] Method of Transfer: EMS Departure-Patient Inst. Referrals: MARY LOU SCOTT MD (PCP) Primary Care Physician ERIN FRANKLIN (Family) Primary Care Physician MELISSA COTTER DO Jul 09, 2021 18:19
[2021-07-09 18:48] LABS: BASOPHILS % (AUTO) 1 % (0-10); EOSINOPHILS % (AUTO) 0 % (0-10); HEMATOCRIT 42 % (35-52); HEMOGLOBIN 13.3 g/dL (11.5-16.0); LYMPHOCYTES # (AUTO) 0.9 10^3/uL (1.0-4.0); LYMPHOCYTES % (AUTO) 13 % (12-44); MEAN CORPUSCULAR HEMOGLOBIN 29 pg (25-34); MEAN CORPUSCULAR HGB CONC 32 g/dL (32-36); MEAN CORPUSCULAR VOLUME 91 fL (80-99); MEAN PLATELET VOLUME 10.7 fL (9.0-12.2); MONOCYTES # (AUTO) 0.5 10^3/uL (0.0-1.0); MONOCYTES % (AUTO) 7 % (0-12); NEUTROPHILS # (AUTO) 5.1 10^3/uL (1.8-7.8); NEUTROPHILS % (AUTO) 78 % (42-75); PLATELET COUNT 172 10^3/uL (130-400); WHITE BLOOD COUNT 6.5 10^3/uL (4.3-11.0)
[2021-07-09 19:13] LABS: ALBUMIN 4.1 GM/DL (3.2-4.5); BILIRUBIN,TOTAL 1.4 MG/DL (0.1-1.0); CALCIUM 9.7 MG/DL (8.5-10.1); CREATININE SERUM 1.39 MG/DL (0.60-1.30); POTASSIUM 4.9 MMOL/L (3.6-5.0); TOTAL PROTEIN 6.8 GM/DL (6.4-8.2)
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
--- NOTE | 2021-07-09 19:46 | Diagnostic Imaging Report ---
INDICATION: Left elbow pain. EXAMINATION: AP, oblique and lateral views of the left elbow were obtained. FINDINGS: There is an IV catheter in the antecubital fossa. No acute fracture or dislocation is identified. No abnormal lytic or sclerotic focus is seen and there is no radiopaque foreign body. IMPRESSION: No acute abnormality. Dictated by: Dictated on workstation # [id number]
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
[2021-07-09] MEDS ORDERED: fentaNYL INJ 100 MCG/2 ML AMP IVP STA (19:57)
[2021-07-09] MEDS ORDERED: TETANUS,DIPTH,PERTUSS P/F (BOOSTRIX) 0.5 ML VIAL IM ONE (20:00)
[2021-07-09] MEDS ORDERED: NS IV 1000 ML 1,000 ML IV SCH (20:15)
[2021-07-09 21:01] LABS: BILIRUBIN,URINE NEGATIVE (NEGATIVE); CLARITY,URINE CLOUDY; COLOR,URINE YELLOW; GLUCOSE, URINE (UA) 3+ (NEGATIVE); KETONES,URINE NEGATIVE (NEGATIVE); LEUKOCYTE ESTERASE ,URINE NEGATIVE (NEGATIVE); NITRITE,URINE NEGATIVE (NEGATIVE); PROTEIN,URINE NEGATIVE (NEGATIVE)
[2021-07-09 21:09] LABS: BACTERIA,URINE LARGE /HPF; WBC,URINE RARE /HPF
[2021-07-09 21:24] VITALS: BP 133/86
[2021-07-09] MEDS ORDERED: LORazepam INJ 2 MG/ML (ATIVAN) VIAL IVP ONE (21:30)
== END 2021-07-09 21:24 | disposition short-term general hospital (02) ==
LOC: EDUNIT# 18:11 → ER 18:14
DX: S22.050A Wedge compression fracture of T5-T6 vertebra, initial encounter for closed fracture (principal); S32.402A Unspecified fracture of left acetabulum, initial encounter for closed fracture; S41.112A Laceration without foreign body of left upper arm, initial encounter; S00.83XA Contusion of other part of head, initial encounter; S50.02XA Contusion of left elbow, initial encounter; S09.90XA Unspecified injury of head, initial encounter; Z87.891 Personal history of nicotine dependence; Z23 Encounter for immunization; Z94.1 Heart transplant status; Z79.82 Long term (current) use of aspirin; W18.30XA Fall on same level, unspecified, initial encounter
CPT/HCPCS: 36415; 51702; 70450; 70486; 71045; 71250; 72125; 72128; 72131; 73080; 73523; 74176; 80053; 81000; 82150; 83690; 85025; 85610; 85730; 87077; 87088; 87186; 90715; 93005; 93041

== ENCOUNTER 2021-07-28 11:51 | Emergency (ER) | payer OTHER, MEDICARE, MEDICAID ==
[~2021-07-28] VITALS: Ht 162.6 cm; Wt 86.2 kg
[2021-07-28 11:54] VITALS: BP 170/80
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
== END 2021-07-28 12:32 | disposition home or self-care (01) ==
LOC: EDUNIT# 11:51 → ER 11:51
DX: S11.91XA Laceration without foreign body of unspecified part of neck, initial encounter (principal); S60.415A Abrasion of left ring finger, initial encounter; V89.2XXA Person injured in unspecified motor-vehicle accident, traffic, initial encounter
CPT/HCPCS: 99283

== ENCOUNTER → 2021-08-09 | Outpatient (CLI) | payer OTHER, MEDICARE, MEDICAID ==
--- NOTE | 2021-08-09 11:01 | Diagnostic Imaging Report ---
Indication: Heart disease Findings: The heart size is normal. There has been previous median sternotomy. No pleural effusion, pneumothorax or pneumonia. Mediastinum is unremarkable. IMPRESSION: No acute cardiopulmonary abnormality Dictated by: Dictated on workstation # [id number]
== END ==
LOC: RAD 10:00
PROVIDERS: ATTEND Internal Medicine
DX: Z48.21 Encounter for aftercare following heart transplant (principal); S29.9XXD Unspecified injury of thorax, subsequent encounter; X58.XXXD Exposure to other specified factors, subsequent encounter
CPT/HCPCS: 71046

== ENCOUNTER 2021-12-25 06:07 | Outpatient (CLI) | payer MEDICARE, MEDICAID ==
[~2021-12-25] VITALS: Ht 162.6 cm; Wt 64.1 kg
[~2021-12-25 06:07] MED LIST changes: +HYDR-4085 PO; -HYDR-87 PO
[2021-12-29] MEDS ORDERED: TACR0.5C6 PO (12:51)
[2021-12-29] MEDS ORDERED: SIRO0.5T3 PO (12:51)
[2021-12-29] MEDS ORDERED: TACR1CAP8 PO (12:51)
[2021-12-29] MEDS ORDERED: GABA300C PO (12:51)
[2021-12-29] MEDS ORDERED: CHOL100048 PO (12:51)
[2021-12-29] MEDS ORDERED: LOSA50TA63 PO (12:51)
[2021-12-29] MEDS ORDERED: CALC250T2 PO (12:51)
[2021-12-29] MEDS ORDERED: FURO40TA4 PO (12:51)
[2021-12-29] MEDS ORDERED: ASPI-999 PO (12:51)
== END 2021-12-29 12:54 ==
LOC: PREOP 06:07
PROVIDERS: ATTEND Specialist
DX: Z01.818 Encounter for other preprocedural examination (principal); H25.11 Age-related nuclear cataract, right eye

== ENCOUNTER → 2022-01-02 | Day surgery (SDC) | payer MEDICARE, MEDICAID ==
[~2022-01-02] VITALS: Ht 162.6 cm; Wt 64.1 kg
[~2022-01-02] MED LIST changes: +ASPI-999 PO; +CALC250T2 PO; +CHOL100048 PO; +FURO40TA4 PO; +GABA300C PO; +LOSA50TA63 PO; +MIDAZOLAM 2 MG/2 ML (VERSED) VIAL ONE; +MOXIFLOXACIN OPHTH SOLN 5 MG/ML 0.3 ML SYRINGE OP ONE; +POVIDONE (BETADINE) OPHTH SOLN 5% 30 ML OP ONE; +SIRO0.5T3 PO; +TACR0.5C6 PO; +TACR1CAP8 PO; +TIMOLOL MALEATE 0.5% 5 ML (TIMOPTIC) BTL OU PRN; +acetaZOLAMIDE ER 500 MG CAP (DIAMOX SEQUELS) PO ONE
[2022-01-02] MEDS: TETRACAINE 0.5% OPHTH SOLN 4 ML BTL (SINGLE DOSE ONLY) OU PRN ×4 (10:54→11:16)
[2022-01-02] MEDS: PHENYLEPHRINE 10% OPHTH (NEO-SYN) 5 ML BTL OU SCH ×3 (11:00→11:16)
[2022-01-02] MEDS: TROPICAMIDE 1% OPH SOLN (MYDRIACYL) 15 ML BTL OP SCH ×2 (11:00→11:05)
[2022-01-02 11:02] VITALS: BP 149/80
--- NOTE | 2022-01-02 11:39 | Ophthalmologist Pre-Op Note ---
Pre-Operative Progress Note H&P Reviewed The H&P was reviewed, patient examined and no changes noted. Date H&P Reviewed: Jan 02, 2022 Time H&P Reviewed: 11:39 Pre-Op Dx Cataract, Right Eye LETICIA GRIFFITHS MD Jan 02, 2022 11:39
--- NOTE | 2022-01-02 11:59 | Ophthalmology Operative Report ---
Cataract removal/placement IOL PREOPERATIVE DIAGNOSIS: Cataract Right Eye POSTOPERATIVE DIAGNOSIS: Cataract Right Eye PROCEDURE: Cataract removal and placement of posterior chamber implant, right eye SURGEON: Az Griffiths ANESTHESIA: Topical with sedation COMPLICATIONS: None ESTIMATED BLOOD LOSS: Minimal DESCRIPTION OF PROCEDURE: After proper informed consent was obtained, the patient, a 66 female, was taken to the Operating Room and the right eye was anesthetized with tetracaine. The right eye was then prepped and draped in the usual manner. A wire lid speculum was placed. A paracentesis was made at the left hand position. Preservative free lidocaine was injected into the anterior chamber followed by viscoelastic. A clear corneal incision was made in the temporal position. A capsulorrhexis was preformed and the central nuclear and cortical material were removed. The posterior capsule was polished and Gil 22.5 AU00T0 IOL was placed into the capsular bag. The residual viscoelastic was aspirated and balanced saline solution was injected into the anterior chamber. Moxifloxacin was injected into the anterior chamber. The wound was checked and found to be water tight. The patient tolerated the procedure well without complications. AZ GRIFFITHS MD Jan 02, 2022 11:59
[2022-01-02 12:04] VITALS: BP 153/86
--- NOTE | 2022-01-02 12:58 | Anesthesia-General Post-Op ---
MAC Patient Condition Mental Status/LOC: Same as Preop Cardiovascular: Satisfactory Nausea/Vomiting: Absent Respiratory: Satisfactory Pain: Controlled Complications: Absent Post Op Complications Complications None Follow Up Care/Instructions Patient Instructions None needed. Anesthesiology Discharge Order Discharge Order Patient is doing well, no complaints, stable vital signs, no apparent adverse anesthesia problems. No complications reported per nursing. ZAHRA PITTS CRNA Jan 02, 2022 12:58
== END | disposition home or self-care (01) ==
LOC: SDC 09:53
PROVIDERS: ATTEND Specialist
DX: E11.36 Type 2 diabetes mellitus with diabetic cataract (principal); H25.9 Unspecified age-related cataract; Z79.4 Long term (current) use of insulin; Z94.1 Heart transplant status; Z85.038 Personal history of other malignant neoplasm of large intestine; Z85.828 Personal history of other malignant neoplasm of skin; Z79.84 Long term (current) use of oral hypoglycemic drugs; Z79.82 Long term (current) use of aspirin
CPT/HCPCS: 66984; V2632

== ENCOUNTER 2022-01-12 05:40 | Outpatient (CLI) | payer MEDICARE, MEDICAID ==
[~2022-01-12] VITALS: Ht 162.6 cm; Wt 64.1 kg
[~2022-01-12 05:40] MED LIST changes: -MIDAZOLAM 2 MG/2 ML (VERSED) VIAL ONE; -MOXIFLOXACIN OPHTH SOLN 5 MG/ML 0.3 ML SYRINGE OP ONE; -POVIDONE (BETADINE) OPHTH SOLN 5% 30 ML OP ONE; -TIMOLOL MALEATE 0.5% 5 ML (TIMOPTIC) BTL OU PRN; -acetaZOLAMIDE ER 500 MG CAP (DIAMOX SEQUELS) PO ONE
== END 2022-01-12 14:26 | disposition home or self-care (01) ==
LOC: PREOP 05:40
PROVIDERS: ATTEND Specialist
DX: Z01.818 Encounter for other preprocedural examination (principal)

== ENCOUNTER 2022-01-16 10:04 | Day surgery (SDC) | payer MEDICARE, MEDICAID ==
[~2022-01-16] VITALS: Ht 162.6 cm; Wt 64.1 kg
[2022-01-16] MEDS: TETRACAINE 0.5% OPHTH SOLN 4 ML BTL (SINGLE DOSE ONLY) OU PRN ×3 (10:14→10:20)
[2022-01-16] MEDS ORDERED: PHENYLEPHRINE 10% OPHTH (NEO-SYN) 5 ML BTL OU PRN (10:15)
[2022-01-16] MEDS ORDERED: TROPICAMIDE 1% OPH SOLN (MYDRIACYL) 15 ML BTL OU PRN (10:15)
[2022-01-16 10:22] VITALS: BP 149/81
--- NOTE | 2022-01-16 10:57 | Ophthalmologist Pre-Op Note ---
Pre-Operative Progress Note H&P Reviewed The H&P was reviewed, patient examined and no changes noted. Date H&P Reviewed: Jan 16, 2022 Time H&P Reviewed: 10:51 Pre-Op Dx Secondary Cataract, Right Eye LETICIA GRIFFITHS MD Jan 16, 2022 10:57
--- NOTE | 2022-01-16 10:58 | Ophthalmology Operative Report ---
YAG Capsulotomy PREOPERATIVE DIAGNOSIS: Secondary Cataract Left Eye POSTOPERATIVE DIAGNOSIS: Secondary Cataract Left Eye PROCEDURE: YAG Capsulotomy, left eye SURGEON: Az Griffiths ANESTHESIA: Topical anesthesia COMPLICATIONS: None ESTIMATED BLOOD LOSS: Minimal DESCRIPTION OF PROCEDURE: After proper informed consent was obtained, the patient's, a 66 female left eye received one drop of Tropicamide and one drop of Tetracaine. The patient was then placed at the YAG laser and using a power of [ 3.8] millijoules and [ 21] bursts were used to fashion a central capsulotomy. The patient tolerated the procedure well without complications. AZ GRIFFITHS MD Jan 16, 2022 10:58
== END 2022-01-16 10:50 | disposition home or self-care (01) ==
LOC: SDC 10:04
PROVIDERS: ATTEND Specialist
DX: E11.36 Type 2 diabetes mellitus with diabetic cataract (principal); H26.40 Unspecified secondary cataract; Z94.1 Heart transplant status; Z85.038 Personal history of other malignant neoplasm of large intestine; Z85.828 Personal history of other malignant neoplasm of skin

== ENCOUNTER 2022-02-03 09:10 | Outpatient (RCR) | payer MEDICARE, MEDICAID ==
[2022-02-17] MEDS ORDERED: SITA25TA5 PO (11:53)
== END 2022-03-02 | disposition home or self-care (01) ==
PROVIDERS: ATTEND Family Medicine Sports Medicine
DX: M65.332 Trigger finger, left middle finger (principal); S66.313D Strain of extensor muscle, fascia and tendon of left middle finger at wrist and hand level, subsequent encounter; X58.XXXD Exposure to other specified factors, subsequent encounter

== ENCOUNTER 2022-02-13 13:18 | Outpatient (CLI) | payer MEDICARE, MEDICAID ==
[~2022-02-13] VITALS: Ht 162.6 cm; Wt 63.6 kg
[2022-02-17] MEDS ORDERED: SITA25TA5 PO (11:53)
== END 2022-02-17 12:03 | disposition home or self-care (01) ==
LOC: PREOP 13:18
PROVIDERS: ATTEND Specialist
DX: Z01.818 Encounter for other preprocedural examination (principal)

== ENCOUNTER 2022-02-20 08:07 | Outpatient (CLI) | payer MEDICARE, MEDICAID ==
[~2022-02-20] VITALS: Ht 162.6 cm; Wt 63.6 kg
[~2022-02-20 08:07] MED LIST changes: +SITA25TA5 PO
[2022-02-20] MEDS ORDERED: PHENYLEPHRINE 10% OPHTH (NEO-SYN) 5 ML BTL OU PRN (08:15)
[2022-02-20] MEDS ORDERED: TETRACAINE 0.5% OPHTH SOLN 4 ML BTL (SINGLE DOSE ONLY) OU PRN (08:15)
[2022-02-20] MEDS ORDERED: TROPICAMIDE 1% OPH SOLN (MYDRIACYL) 15 ML BTL OU PRN (08:15)
[2022-02-20 08:34] VITALS: BP 149/89
--- NOTE | 2022-02-20 11:50 | Ophthalmologist Pre-Op Note ---
Pre-Operative Progress Note H&P Reviewed The H&P was reviewed, patient examined and no changes noted. Date H&P Reviewed: Feb 20, 2022 Time H&P Reviewed: 08:50 Pre-Op Dx Secondary Cataract, Right Eye LETICIA GRIFFITHS MD Feb 20, 2022 11:50
--- NOTE | 2022-02-20 11:53 | Ophthalmology Operative Report ---
YAG Capsulotomy PREOPERATIVE DIAGNOSIS: Capsular remnant from prior YAG Left Eye POSTOPERATIVE DIAGNOSIS: Same PROCEDURE: YAG Capsulotomy, left eye SURGEON: Az Griffiths ANESTHESIA: Topical anesthesia COMPLICATIONS: None ESTIMATED BLOOD LOSS: Nonel DESCRIPTION OF PROCEDURE: After proper informed consent was obtained, the patient's, a 66 female left eye received one drop of Tropicamide and one drop of Tetracaine. The patient was then placed at the YAG laser and using a power of [3.8 ] millijoules and [18 ] bursts were used to release the capsular remnant. The patient tolerated the procedure well without complications. AZ GRIFFITHS MD Feb 20, 2022 11:53
== END 2022-02-20 09:00 ==
LOC: SDC 08:07
PROVIDERS: ATTEND Specialist
DX: Z01.818 Encounter for other preprocedural examination (principal); H26.493 Other secondary cataract, bilateral

== ENCOUNTER 2022-12-17 15:44 | Emergency (ER) | payer MEDICARE, MEDICAID ==
[2022-12-17 15:50] VITALS: BP 139/88
--- NOTE | 2022-12-17 16:28 | ED Upper Extremity ---
General Chief Complaint: Upper Extremity Stated Complaint: LEFT HAND PAIN Nursing Triage Note: pt amb to ft1 with c/o l hand throbbing since waking up this morning. pt states she has had 4 episodes of the throbbing today Source: patient Exam Limitations: no limitations History of Present Illness Date Seen by Provider: Dec 17, 2022 Time Seen by Provider: 16:25 Initial Comments Patient is a 66-year-old female with a history of stroke, heart transplant who presents ED with throbbing pain in her left hand. She states this morning when she woke up after she washed her hand she felt a this pain in her left palmar hand. She describes it as fluid coming out of her hand. She states the pain is intermittent. Denies this is of any specific weakness. She had a trigger finger repair by Dr. Maya November 20. She is not currently on anticoagulants. She denies headache, dizziness, nausea, vomiting, diarrhea, left arm weakness, chest pain, shortness of breath. She was sent to the ED to rule out potential clot. History of left-sided stroke with previous deficits. Not currently on any anticoagulant. Denies of any lower extremity pain, Norberto pain, vomiting, diarrhea, redness or swelling or bruising of her left hand Allergies and Home Medications Allergies Coded Allergies: insulin aspart (Unverified Allergy, Unknown, HIVES, 02/17/22) insulin glargine (Verified Allergy, Unknown, HIVES, 02/17/22) metformin (Verified Allergy, Unknown, Diarrhea, 02/17/22) nitroglycerin (Verified Allergy, Unknown, HEADACHES, 02/17/22) Patient Home Medication List Home Medication List Reviewed: Yes Aspirin (Aspirin) 81 Mg Tab.chew, 81 MG PO DAILY, (Reported) Entered as Reported by: CHUCK NEFF on 12/29/21 125 Calcium Citrate (Calcium Citrate) 250 Mg Calcium Tablet, 250 MG PO DAILY, (Reported) Entered as Reported by: CHUCK NEFF on 12/29/21 1251 Cholecalciferol (Vitamin D3) (Vitamin D3) 25 Mcg (1000 Unit) Capsule, 25 MCG PO DAILY, (Reported) Entered as Reported by: CHUCK NEFF on 12/29/21 1251 Furosemide (Furosemide) 40 Mg Tablet, 40 MG PO BID, (Reported) Entered as Reported by: CHUCK NEFF on 12/29/21 1251 Gabapentin (Neurontin) 300 Mg Capsule, 300 MG PO BID, (Reported) Entered as Reported by: CHUCK NEFF on 12/29/21 1251 Losartan Potassium (Losartan Potassium) 50 Mg Tablet, 50 MG PO DAILY, (Reported) Entered as Reported by: CHUCK NEFF on 12/29/21 1251 Sirolimus (Sirolimus) 0.5 Mg Tablet, 1 MG PO DAILY, (Reported) Entered as Reported by: CHUCK NEFF on 12/29/21 1251 Sitagliptin Phosphate (Januvia) Unknown Strength Tablet, Unknown Dose PO, (Reported) Entered as Reported by: REJI ROMO on 02/17/22 1153 Tacrolimus (Tacrolimus) 1 Mg Capsule, 1 MG PO BID, (Reported) Entered as Reported by: CHUCK NEFF on 12/29/21 1251 Review of Systems Constitutional: No chills, No diaphoresis EENTM: No ear pain Gastrointestinal: No abdominal pain, No diarrhea, No nausea Genitourinary: No decreased output Musculoskeletal: No joint pain; muscle pain Skin: No change in color, No change in hair/nails All Other Systems Reviewed Negative Unless Noted: Yes Past Upqpbbh-Xzvfti-Djmofl Hx Patient Social History Tobacco Use?: No Use of E-Cig and/or Vaping dev: No Substance use?: No Alcohol Use?: No Pt feels they are or have been: No Immunizations Up To Date Tetanus Booster (TDap): Less than 5yrs First/Initial COVID19 Vaccinat: 2020 Second COVID19 Vaccination Lucius: 2020 Third COVID19 Vaccination Date: 2020 Past Medical History Surgery/Hospitalization HX: heart transplant, trigger finger, hx of stroke Surgeries: Yes Abdominal, Appendectomy, Bowel Surgery, Cardiac, Coronary Stent, Defibrillator, Ear Surgery, Gallbladder, Hysterectomy, Oophorectomy, Orthopedic, Pacemaker Respiratory: No Cardiac: Yes (STENTS X 2;CHF;PACEMAKER / DEFIBRILLATOR;HEART TRANSPLANT 03/2021) Atrial Fibrillation, Cardiomyopathy, Chronic Edema/Swelling, Coronary Artery Disease, High Cholesterol, Hypertension Neurological: Yes (PERIPHERAL NEUROPATHY;CVA WITH LEFT SIDE WEAKNESS) Neuropathy, Stroke 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, Menopausal Sexually Transmitted Disease: No Genitourinary: Yes Bladder Infection Gastrointestinal: Yes (COLON RESECTION FOR CANCER) Chronic Diarrhea Musculoskeletal: Yes Degenerate Disk Disease, Arthritis Endocrine: Yes (WAS ON INSULIN BUT HAD ALLERGIC REACTION TO LANTUS AND NOVOLOG- NOW TRESIBA) Diabetes, Insulin dep, Diabetes, Non-Insulin dep HEENT: Yes (RIGHT COCHLEAR IMPLANT) Hearing Impairment: Hearing Aide Right Cancer: Yes Colon Did You Recieve Any Treatments: Yes What Type of Treatment Did You: Surgical Intervention Psychosocial: Yes Sleep Difficulties, Anxiety, Depression Integumentary: No Blood Disorders: No Family Medical History PAST SURGICAL HISTORY: -RIGHT COCHLEAR IMPLANT -COLON RESECTION FOR CANCER -RIGHT KNEE SCOPE -CARDIAC CATHS WITH STENTS X 2 -PACEMAKER/DEFIBRILLATOR -LEFT ELBOW SURGERY--?ULNAR NERVE SURGERY? -BILATERAL CARPAL TUNNEL SURGERY -HYSTERECTOMY WITH BILATERAL SALPINGO-OOPHORECTOMY -APPENDECTOMY -CHOLECYSTECTOMY -PORT PLACED AND LATER REMOVED -03/2021--HEART TRANSPLANT AT [facility]. Physical Exam Vital Signs Vital Signs - First Documented 12/17/22 15:50 Temp 36.8 Pulse 105 Resp 14 B/P (MAP) 139/88 (105) Pulse Ox 99 Capillary Refill : Height, Weight, BMI Height: 5'4.00" Weight: 216lbs. oz. 97.044292gl; 32.00 BMI Method:Stated General Appearance: WD/WN, no apparent distress HEENT: PERRL/EOMI, normal ENT inspection, TMs normal, pharynx normal Neck: non-tender, full range of motion, supple Cardiovascular: regular rate, rhythm, no edema, no gallop, no JVD Respiratory: chest non-tender, lungs clear, normal breath sounds, no respirato ry distress, no accessory muscle use Gastrointestinal: normal bowel sounds, non tender, soft, no organomegaly Back: normal inspection, no CVA tenderness, no vertebral tenderness Shoulder: normal inspection, non-tender, no evidence of injury Elbow/Forearm: normal inspection, non-tender, no evidence of injury, Left Wrist: Yes normal inspection, Yes non-tender, Yes no evidence of injury (left wrist) Hand: normal inspection, non-tender, normal ROM, Left Neurologic/Tendon: normal sensation, normal motor functions, normal tendon functions Neurologic/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 No dorsum hand pain. Pain does not radiate up or down. No headache, dizziness, chest pain, shortness of breath. History of stroke with left-sided deficits. She had a trigger finger repair performed by Dr. MAYA in October. On exam no erythema or swelling. Neurovascular intact. 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 Negative phalen and tinel sign. Patient contacted her neurologist at [facility] who recommended come to ED to rule out potential DVT. Does not appear to be related to a DVT however I did order an ultrasound which was negative. She has adequate movement of her left upper extremity. No specific pain at this time. She feels like there is fluid on her hand that wants to come out. Other etiologies would be carpal tunnel however her exam was negative. This could be tested outpatient. Discussed Tylenol. Continue monitoring symptoms at home. Follow-up your PCP in 2 days for reevaluation. If any upper arm pain, chest pain or shortness of breath headache dizziness visual changes to return back to ED. Does not appear to be related to a stroke. Impression Primary Impression: Hand pain Disposition: 01 HOME, SELF-CARE Condition: Stable Departure-Patient Inst. Decision time for Depature: 17:49 Referrals: FARHAN PICHARDO APRN (PCP/Family) Primary Care Physician Patient Instructions: Hand Pain Add. Discharge Instructions: Continue monitoring. May take Tylenol. Follow-up with your primary care physician in a few days for reevaluation. If any worsening symptoms such as chest pain, upper extremity weakness or sensory changes to return back to ED. May consider a Velcro splint for comfort. All discharge instructions reviewed with patient and/or family. Voiced understanding. VINCENT CORREA Dec 17, 2022 16:28
--- NOTE | 2022-12-17 17:43 | Diagnostic Imaging Report ---
Procedure: US venous upper extremity left. Technique: Multiple realtime grayscale images were obtained of left upper extremity in various projections. Additional spectral analysis and color Doppler duplex images were also obtained. Date: December 17, 2022. Indication: 66-year-old female, left hand pain and swelling. Comparison: None. Findings: The visualized portions of the left internal jugular vein, left subclavian vein and left axillary vein are patent. The left brachial and basilic veins are patent. The left radial and ulnar veins are patent. The left cephalic vein compresses and is also likely patent. Impression: Negative for left upper extremity deep venous thrombosis. Dictated by: Dictated on workstation # [id number]
== END 2022-12-17 17:51 | disposition home or self-care (01) ==
LOC: EDUNIT# 15:44 → ER 15:47
DX: M79.642 Pain in left hand (principal); E11.9 Type 2 diabetes mellitus without complications; Z79.4 Long term (current) use of insulin

== ENCOUNTER 2023-03-08 14:07 | Emergency (ER) | payer MEDICARE, MEDICAID ==
--- NOTE | 2023-03-08 15:08 | ED GI ---
General Chief Complaint: Abdominal/GI Problems Stated Complaint: ABD PAIN | POSSIBLE OBSTRUCTION Nursing Triage Note: PT AMB TO RM 8 WITH C/O L SIDE PAIN AND HAVING A CT SCAN TODAY AND SENT HERE BY PCP FOR POSS SBO Source of Information: Patient History of Present Illness Date Seen by Provider: Mar 08, 2023 Time Seen by Provider: 15:07 Initial Comments 67-year-old female presents from [facility] after having a CAT scan done this morning for left upper quadrant and side abdominal pain for the past couple of months. Concern arose when it was apparently read as a bowel obstruction. Patient states she is passing gas normally normal appetite she is in no significant distress right now however she does have significant surgical medical history including a heart transplant 2 years ago abdominal surgery with colon resection secondary to a large mass years ago as well she states she has a colonoscopy scheduled Wednesday next Wednesday. She is in no significant distress she does have a follow-up appointment in [place] for her heart transplant tomorrow as well. No fever no melena medic easy no vomiting no change in appetite or hunger levels. We will review CT and proceed from there. Awaiting for it to be transferred to the cloud. Of note she states she did fall a couple of months ago prior to onset of her symptoms. Timing/Duration: Changing Over Time Severity/Quality: Moderate Location: LUQ, Flank Radiation: No Radiation Activities at Onset: None Associated Symptoms: Denies Symptoms Allergies and Home Medications Allergies Coded Allergies: insulin aspart (Unverified Allergy, Unknown, HIVES, 02/17/22) insulin glargine (Verified Allergy, Unknown, HIVES, 02/17/22) metformin (Verified Allergy, Unknown, Diarrhea, 02/17/22) nitroglycerin (Verified Allergy, Unknown, HEADACHES, 02/17/22) Patient Home Medication List Home Medication List Reviewed: Yes Aspirin (Aspirin) 81 Mg Tab.chew, 81 MG PO DAILY, (Reported) Entered as Reported by: CHUCK NEFF on 12/29/21 1251 Calcium Citrate (Calcium Citrate) 250 Mg Calcium Tablet, 250 MG PO DAILY, (Reported) Entered as Reported by: CHUCK NEFF on 12/29/21 1251 Cholecalciferol (Vitamin D3) (Vitamin D3) 25 Mcg (1000 Unit) Capsule, 25 MCG PO DAILY, (Reported) Entered as Reported by: CHUCK NEFF on 12/29/21 1251 Furosemide (Furosemide) 40 Mg Tablet, 40 MG PO BID, (Reported) Entered as Reported by: CHUCK NEFF on 12/29/21 1251 Gabapentin (Neurontin) 300 Mg Capsule, 300 MG PO BID, (Reported) Entered as Reported by: CHUCK NEFF on 12/29/21 1251 Losartan Potassium (Losartan Potassium) 50 Mg Tablet, 50 MG PO DAILY, (Reported) Entered as Reported by: CHUCK NEFF on 12/29/21 1251 Sirolimus (Sirolimus) 0.5 Mg Tablet, 1 MG PO DAILY, (Reported) Entered as Reported by: CHUCK NEFF on 12/29/21 125 Sitagliptin Phosphate (Januvia) Unknown Strength Tablet, Unknown Dose PO, (Reported) Entered as Reported by: REJI ROMO on 02/17/22 1153 Tacrolimus (Tacrolimus) 1 Mg Capsule, 1 MG PO BID, (Reported) Entered as Reported by: CHUCK NEFF on 12/29/21 125 Review of Systems Review of Systems Constitutional: no symptoms reported EENTM: No Symptoms Reported Respiratory: No Symptoms Reported Cardiovascular: No Symptoms Reported Gastrointestinal: See HPI Genitourinary: No Symptoms Reported Musculoskeletal: no symptoms reported Skin: no symptoms reported Psychiatric/Neurological: No Symptoms Reported Endocrine: No Symptoms Reported Hematologic/Lymphatic: No Symptoms Reported All Other Systems Reviewed Negative Unless Noted: Yes Past Isgdbxp-Wzarhj-Tplesy Hx Patient Social History Tobacco Use?: No Use of E-Cig and/or Vaping dev: No Substance use?: No Alcohol Use?: No Pt feels they are or have been: No Immunizations Up To Date Tetanus Booster (TDap): Less than 5yrs Influenza Vaccine Up-to-Date: No; Not Current First/Initial COVID19 Vaccinat: 2020 Second COVID19 Vaccination Lucius: 2020 Third COVID19 Vaccination Date: 2020 Past Medical History Surgery/Hospitalization HX: heart transplant, trigger finger, hx of stroke, COCHLEAR IMPLANT Surgeries: Yes Abdominal, Appendectomy, Bowel Surgery, Cardiac, Coronary Stent, Defibrillator, Ear Surgery, Gallbladder, Hysterectomy, Oophorectomy, Orthopedic, Pacemaker Respiratory: No Cardiac: Yes (STENTS X 2;CHF;PACEMAKER / DEFIBRILLATOR;HEART TRANSPLANT 03/2021) Atrial Fibrillation, Cardiomyopathy, Chronic Edema/Swelling, Coronary Artery Disease, High Cholesterol, Hypertension Neurological: Yes (PERIPHERAL NEUROPATHY;CVA WITH LEFT SIDE WEAKNESS) Neuropathy, Stroke 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, 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 Sexually Transmitted Disease: No Genitourinary: Yes Bladder Infection Gastrointestinal: Yes (COLON RESECTION FOR CANCER) Chronic Diarrhea Musculoskeletal: Yes Degenerate Disk Disease, Arthritis Endocrine: Yes (WAS ON INSULIN BUT HAD ALLERGIC REACTION TO LANTUS AND NOVOLOG- NOW TRESIBA) Diabetes, Insulin dep, Diabetes, Non-Insulin dep HEENT: Yes (RIGHT COCHLEAR IMPLANT) Hearing Impairment: Hearing Aide Right Cancer: Yes Colon Did You Recieve Any Treatments: Yes What Type of Treatment Did You: Surgical Intervention Psychosocial: Yes Sleep Difficulties, Anxiety, Depression Integumentary: No Blood Disorders: No Family Medical History PAST SURGICAL HISTORY: -RIGHT COCHLEAR IMPLANT -COLON RESECTION FOR CANCER -RIGHT KNEE SCOPE -CARDIAC CATHS WITH STENTS X 2 -PACEMAKER/DEFIBRILLATOR -LEFT ELBOW SURGERY--?ULNAR NERVE SURGERY? -BILATERAL CARPAL TUNNEL SURGERY -HYSTERECTOMY WITH BILATERAL SALPINGO-OOPHORECTOMY -APPENDECTOMY -CHOLECYSTECTOMY -PORT PLACED AND LATER REMOVED -03/2021--[facility] Physical Exam Vital Signs Vital Signs - First Documented 03/08/23 14:26 Temp 36.2 Pulse 100 Resp 16 B/P (MAP) 132/79 (96) Pulse Ox 98 O2 Delivery Room Air Capillary Refill : Height/Weight/BMI Height: 5'4.00" Weight: 216lbs. oz. 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 Patient does have a history of a hemicolectomy therefore shows different calibers of bowel throughout the CT. Clinically patient does not have a bowel obstruction she is not vomiting she does not have significant pain she indicates that her pain is in her left lateral ribs where she fell against a plastic bin months ago. She is still passing gas and stool. She does not have a distended abdomen. Discussed if concern continues to come in for an outpatient small bowel follow- through. Discussed this with patient who agrees no further testing indicated at this time. Departure Impression Primary Impression: Abdominal pain Qualified Codes: R10.12 - Left upper quadrant pain Disposition: HOME, SELF-CARE Condition: Stable Departure-Patient Inst. Referrals: FARHAN PICHARDO APRN (PCP/Family) Primary Care Physician Patient Instructions: Abdominal pain Add. Discharge Instructions: As discussed return immediately for worsening symptoms. You may contact your primary care to schedule an outpatient small bowel follow-through study if concern persists. 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 All discharge instructions reviewed with patient and/or family. Voiced understanding. LEIDY JEROME DO Mar 08, 2023 15:08
[2023-03-08 15:41] VITALS: BP 133/75
== END 2023-03-08 15:41 | disposition home or self-care (01) ==
LOC: EDUNIT# 14:07 → ER 14:09
DX: R10.12 Left upper quadrant pain (principal)
CPT/HCPCS: 99281